=== PATIENT | male | born 1965 | race African-American/Black ===

== ENCOUNTER 2019-09-01 08:45 | Outpatient (CLI) | payer OTHER ==
[2019-09-01] MEDS ORDERED: SINCALIDE 5 MCG VIAL IV ONE (10:01)
[2019-09-01] MEDS ORDERED: WATER FOR INJ Sterile (PF) 10 ML IV ONE (10:01)
--- NOTE | 2019-09-01 11:14 | Nuclear Medicine Report ---
"NUCLEAR MEDICINE HEPATOBILIARY SCAN INDICATION: K83.8 COMMON BILE DUCT DILATATION. TECHNIQUE: Radiotracer: Tc-99m mebrofenin (by IV): 5 mCi. Gallbladder Stimulant: 1.45[Cholecystokinin (in mcg by IV) | FINDINGS: Hepatic activity: Normal. Biliary activity: Normal. Common bile duct activity at 15 minutes. Gallbladder activity: Normal at 20 minutes. Small bowel activity: Normal at 30 minutes. Gallbladder ejection fraction % (if calculated): 7 (Normal is >35% at 30 min with Cholecystokinin OR >33% at 60 min with Ensure). Patient symptom reproduction: CCK administration reproduced the patient's symptoms. IMPRESSION: 1. No biliary obstruction. 2. Ejection fraction is 17% which is low. 3. CCK administration reproduced the patient's symptoms. Signer Name: French Manjarrez MD Signed: 09/01/2019 11:10 AM Workstation Name: [id number]"
== END 2019-09-01 08:46 | disposition home or self-care (01) ==
LOC: NM 08:45
DX: K83.8 Other specified diseases of biliary tract (principal)
CPT/HCPCS: 78227; A9537; J2805